=== PATIENT | female | born 1985 ===

== ENCOUNTER 2020-03-15 10:17 | Outpatient (RCR) | payer BC, SELFPAY ==
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
--- NOTE | 2020-03-21 14:26 | PCPTNOTE ---
PHYSICAL THERAPY DISCHARGE SUMMARY Admitting Provider: Attending Provider: PHYSICIAN NOT ON STAFF Patient:Apoorva Harrison Date of :1985 Apoorva called to cancel her scheduled appointments due to insurance reasons. Therefore, she will be discharged at this time. Apoorva?s initial visit was on 03/15/2020 10:30. The goals have been not met. Thank you for referring [facility] to [facility]. Please review, sign, date and return this discharge summary CHITO. I have been updated about Apoorva's current status and I agree with discharge from the above service at this time. Referring Physician Date
== END 2020-03-22 13:11 | disposition home or self-care (01) ==
LOC: ANHPT 10:17
PROVIDERS: Referring Provider Obstetrics & Gynecology Gynecologic Oncology
DX: R32 Unspecified urinary incontinence (principal)
CPT/HCPCS: 97110; 97161